=== PATIENT | female | born 1960 | race Caucasian/White ===

== ENCOUNTER 2023-10-17 12:36 | Outpatient (CLI) | payer BC, SELFPAY ==
--- NOTE | 2023-10-17 13:24 | W.ANESCHARGE ---
Anesthesia Charges Start Date/Time Anesthesia Start Date: 10/17/23 Anesthesia Start Time: 13:20 Stop Date/Time Anesthesia Stop Date: 10/17/23 Anesthesia Stop Time: 13:41
--- NOTE | 2023-10-17 13:44 | W.ANESCHARGE ---
Anesthesia Charges Start Date/Time Anesthesia Start Date: 10/17/23 Anesthesia Start Time: 13:20 Stop Date/Time Anesthesia Stop Date: 10/17/23 Anesthesia Stop Time: 13:41
== END 2023-10-17 12:37 | disposition home or self-care (01) ==
PROVIDERS: PCP Family Medicine; Visit Provider Internal Medicine Gastroenterology
DX: Z12.11 Encounter for screening for malignant neoplasm of colon (principal); K57.30 Diverticulosis of large intestine without perforation or abscess without bleeding
CPT/HCPCS: 00811; 00812; 45378; J2405; J2704